=== PATIENT | male | born 1950 | race Caucasian/White ===

== ENCOUNTER → 2016-05-23 | Outpatient (CLI) | payer MEDICARE, OTHER | LOC: LAB 07:01 | DX: N40.0 Benign prostatic hyperplasia without lower urinary tract symptoms (principal); I10 Essential (primary) hypertension; E78.01 Familial hypercholesterolemia; K21.9 Gastro-esophageal reflux disease without esophagitis ==

== ENCOUNTER → 2016-05-30 | Day surgery (SDC) | payer MEDICARE, OTHER | LOC: MSO 13:36 | DX: Z12.11 Encounter for screening for malignant neoplasm of colon (principal); K22.2 Esophageal obstruction; I10 Essential (primary) hypertension; G47.33 Obstructive sleep apnea (adult) (pediatric); R13.10 Dysphagia, unspecified; K21.9 Gastro-esophageal reflux disease without esophagitis | CPT/HCPCS: 00810; A4649; J3010; J7120 ==

== ENCOUNTER 2016-06-28 15:25 | Outpatient (RCR) | payer MEDICARE, OTHER | END 2016-09-26 | disposition home or self-care (01) | LOC: CARDREHAB | DX: Z48.812 Encounter for surgical aftercare following surgery on the circulatory system (principal); Z95.5 Presence of coronary angioplasty implant and graft ==

== ENCOUNTER 2016-10-11 08:00 | Outpatient (RCR) | payer MEDICARE, OTHER | END 2017-01-09 | disposition home or self-care (01) | LOC: CARDREHAB | DX: Z48.812 Encounter for surgical aftercare following surgery on the circulatory system (principal); Z95.5 Presence of coronary angioplasty implant and graft ==

== ENCOUNTER 2017-05-04 01:53 | Emergency (ER) | payer MEDICARE, OTHER ==
[~2017-05-04] VITALS: Ht 170.2 cm; Wt 103.1 kg
[2017-05-04] MEDS ORDERED: CLOPIDOGREL75 M2 PO (02:09)
[2017-05-04] MEDS ORDERED: WELLBUTRIN (02:10)
[2017-05-04] MEDS ORDERED: LOPRESSOR 225 MG/TAB PO ×2 (02:10→02:13)
[2017-05-04] MEDS ORDERED: POTASSIUM CHLO10 ME8 PO (02:10)
[2017-05-04] MEDS ORDERED: ATORVASTATIN CA80 MG PO (02:10)
[2017-05-04] MEDS ORDERED: BUSPIRONE5 MG PO (02:11)
[2017-05-04] MEDS ORDERED: HCTZ 25MG25 MG PO (02:11)
[2017-05-04] MEDS ORDERED: ACID REDUCER 1150 MG PO (02:11)
[2017-05-04] MEDS ORDERED: VASOTEC 10M10 MG/TAB PO (02:12)
[2017-05-04] MEDS ORDERED: NITROSTAT0.4 M1 SL (02:15)
[2017-05-04] MEDS ORDERED: ASPIRIN 81M81 MG/TA2 PO (02:16)
[2017-05-04 02:41] LABS: EOS # 0.1 (0.04-0.40); EOS % 1.7 % (0.0-4.0); HEMATOCRIT 43.1 % (42.0-52.0); HEMOGLOBIN 15.2 g/dL (13.5-18.0); LYMPH# 1.2 (1.50-4.00); MEAN CELL VOLUME 82 fl (78-100); MEAN CORPUSCULAR HEMOGLOBIN 29 pg (27-31); MEAN CORPUSCULAR HGB CONC 35 g/dL (33-37); MEAN PLATELET VOLUME 10.3 fl (7.4-10.4); MONO # 0.5 (0.20-0.80); NEU # 4.1 (1.40-6.50); PLATELET COUNT 179 K/mm3 (130-400); RED BLOOD COUNT 5.25 M/mm3 (4.20-5.60); RED CELL DISTRIBUTION WIDTH 12.6 % (11.5-14.5); WHITE BLOOD COUNT 5.8 K/mm3 (4.8-10.8)
[2017-05-04 02:56] LABS: ALBUMIN 3.8 g/dL (3.5-5.0); BUN/CREATININE RATIO 14.4 (6.0-26.0); CALCIUM 9.6 mg/dL (8.4-10.2); POTASSIUM 3.4 mmol/L (3.6-5.0); TOTAL BILIRUBIN 0.7 mg/dL (0.2-1.3); TOTAL PROTEIN 6.9 g/dL (6.3-8.2)
[2017-05-04 03:03] LABS: CKMB ISOENZYME 1.9 ng/mL (0.6-3.5); URINE APPEARANCE HAZY; URINE BILIRUBIN NEGATIVE (NEGATIVE); URINE BLOOD 250 ery/uL (NEGATIVE); URINE COLOR YELLOW; URINE GLUCOSE NEGATIVE (NEGATIVE); URINE KETONE NEGATIVE (NEGATIVE); URINE NITRATE NEGATIVE (NEGATIVE); URINE PROTEIN(semi-quant) TRACE mg/dL (NEGATIVE); URINE UROBILINOGEN NORMAL (NORMAL)
[2017-05-04 03:04] LABS: TROPONIN-I < 0.03 ng/mL (0.00-0.06); URINE LEUKOCYTE ESTERASE TRACE (NEGATIVE); URINE MUCUS PRESENT (NOT PRESENT)
[2017-05-04] MEDS ORDERED: PERCOCET 325 MG1 TA2 PO (03:18)
[2017-05-04] MEDS ORDERED: FLOMAX0.4 MG PO (03:18)
[2017-05-04] MEDS ORDERED: CIPRO 500MG TA500 MG PO (03:18)
[2017-05-04 08:10] VITALS: BP 136/77
== END 2017-05-04 08:22 | disposition home or self-care (01) ==
LOC: ED 01:53
PROVIDERS: Nurse Practitioner Family
DX: N13.2 Hydronephrosis with renal and ureteral calculous obstruction (principal); I25.10 Atherosclerotic heart disease of native coronary artery without angina pectoris; I10 Essential (primary) hypertension; Z95.5 Presence of coronary angioplasty implant and graft; Z79.02 Long term (current) use of antithrombotics/antiplatelets; Z98.1 Arthrodesis status; Z79.82 Long term (current) use of aspirin; M54.2 Cervicalgia
CPT/HCPCS: J0744; J1885; J2270; J2405; J7030

== ENCOUNTER → 2017-08-13 | Outpatient (CLI) | payer MEDICARE ==
[~2017-08-13] MED LIST: ACID REDUCER 1150 MG PO; ASPIRIN 81M81 MG/TA2 PO; ATORVASTATIN CA80 MG PO; BUSPIRONE5 MG PO; CIPRO 500MG TA500 MG PO; CLOPIDOGREL75 M2 PO; FLOMAX0.4 MG PO; HCTZ 25MG25 MG PO; LOPRESSOR 225 MG/TAB PO; NITROSTAT0.4 M1 SL; PERCOCET 325 MG1 TA2 PO; POTASSIUM CHLO10 ME8 PO; VASOTEC 10M10 MG/TAB PO; WELLBUTRIN
[2017-08-13 12:13] LABS: HEMATOCRIT 44.9 % (42.0-52.0); HEMOGLOBIN 15.3 g/dL (13.5-18.0); MEAN PLATELET VOLUME 10.2 fl (7.4-10.4); RED BLOOD COUNT 5.37 M/mm3 (4.20-5.60); RED CELL DISTRIBUTION WIDTH 13.2 % (11.5-14.5); WHITE BLOOD COUNT 5.2 K/mm3 (4.8-10.8)
[2017-08-13 12:24] LABS: ALBUMIN 3.9 g/dL (3.5-5.0); BUN/CREATININE RATIO 19.3 (6.0-26.0); CALCIUM 9.2 mg/dL (8.4-10.2); POTASSIUM 3.8 mmol/L (3.6-5.0); TOTAL BILIRUBIN 0.7 mg/dL (0.2-1.3); TOTAL PROTEIN 7.4 g/dL (6.3-8.2)
[2017-08-14 00:08] LABS: HEPATITIS C VIRUS ANTIBODY Negative (())
== END ==
LOC: LAB 11:54
PROVIDERS: Family Medicine
DX: E66.9 Obesity, unspecified (principal); I10 Essential (primary) hypertension

== ENCOUNTER → 2017-11-19 | Outpatient (CLI) | payer MEDICARE ==
[2017-11-19 13:26] LABS: URINE APPEARANCE CLEAR; URINE COLOR YELLOW
[2017-11-19 13:27] LABS: URINE BILIRUBIN NEGATIVE (NEGATIVE); URINE BLOOD NEGATIVE (NEGATIVE); URINE GLUCOSE NEGATIVE (NEGATIVE); URINE KETONE NEGATIVE (NEGATIVE); URINE LEUKOCYTE ESTERASE NEGATIVE (NEGATIVE); URINE NITRATE NEGATIVE (NEGATIVE); URINE PROTEIN(semi-quant) NEGATIVE (NEGATIVE); URINE UROBILINOGEN NORMAL (NORMAL); URINE WBC 0-1 /hpf (0-3)
== END ==
LOC: LAB 11:41
PROVIDERS: Family Medicine
DX: M16.0 Bilateral primary osteoarthritis of hip (principal); M89.8X5 Other specified disorders of bone, thigh

== ENCOUNTER 2018-01-03 11:30 | Outpatient (RCR) | payer MEDICARE | END 2018-01-03 12:00 | disposition home or self-care (01) | LOC: PT 11:30 | DX: M76.31 Iliotibial band syndrome, right leg (principal) | CPT/HCPCS: G8978-GP; G8979-GP ==

== ENCOUNTER → 2018-06-03 | Outpatient (CLI) | payer MEDICARE | LOC: RAD 07:58 | DX: N20.1 Calculus of ureter (principal); Z96.7 Presence of other bone and tendon implants ==

== ENCOUNTER → 2018-08-20 | Outpatient (CLI) | payer MEDICARE ==
[2018-08-20 10:39] LABS: EOS # 0.1 (0.04-0.40); EOS % 2.6 % (0.0-4.0); HEMATOCRIT 44.2 % (42.0-52.0); HEMOGLOBIN 14.5 g/dL (13.5-18.0); LYMPH# 1.5 (1.50-4.00); MEAN CELL VOLUME 84 fl (78-100); MEAN CORPUSCULAR HEMOGLOBIN 28 pg (27-31); MEAN CORPUSCULAR HGB CONC 33 g/dL (33-37); MEAN PLATELET VOLUME 10.3 fl (7.4-10.4); MONO # 0.5 (0.20-0.80); NEU # 2.8 (1.40-6.50); PLATELET COUNT 187 K/mm3 (130-400); RED BLOOD COUNT 5.24 M/mm3 (4.20-5.60); RED CELL DISTRIBUTION WIDTH 13.3 % (11.5-14.5)
[2018-08-20 10:56] LABS: ALBUMIN 3.8 g/dL (3.5-5.0); POTASSIUM 3.9 mmol/L (3.6-5.0); TOTAL BILIRUBIN 0.6 mg/dL (0.2-1.3); TOTAL PROTEIN 6.8 g/dL (6.3-8.2)
== END ==
LOC: LAB 10:18
PROVIDERS: Family Medicine
DX: Z00.00 Encounter for general adult medical examination without abnormal findings (principal); E56.9 Vitamin deficiency, unspecified; E78.00 Pure hypercholesterolemia, unspecified

== ENCOUNTER → 2019-05-27 | Outpatient (CLI) | payer MEDICARE | LOC: RAD 11:24 | DX: N20.1 Calculus of ureter (principal); R35.1 Nocturia; Z98.890 Other specified postprocedural states ==

== ENCOUNTER → 2019-07-28 | Outpatient (CLI) | payer MEDICARE ==
[2019-07-28 07:50] LABS: ALBUMIN 3.7 g/dL (3.4-4.8); POTASSIUM 3.5 mmol/L (3.5-5.1)
[2019-07-28 07:51] LABS: CALCIUM 9.1 mg/dL (8.3-10.5)
[2019-07-28 07:53] LABS: TOTAL PROTEIN 6.6 g/dL (6.2-8.1)
[2019-07-28 07:54] LABS: TOTAL BILIRUBIN 0.9 mg/dL (0.2-1.2)
[2019-07-28 08:03] LABS: EOS # 0.2 (0.04-0.40); EOS % 3.3 % (0.0-4.0); HEMATOCRIT 44.5 % (42.0-52.0); HEMOGLOBIN 15.1 g/dL (13.5-18.0); LYMPH# 1.8 (1.50-4.00); MEAN CELL VOLUME 84 fl (78-100); MEAN CORPUSCULAR HEMOGLOBIN 29 pg (27-31); MEAN CORPUSCULAR HGB CONC 34 g/dL (33-37); MEAN PLATELET VOLUME 10.9 fl (7.4-10.4); MONO # 0.5 (0.20-0.80); NEU # 2.8 (1.40-6.50); PLATELET COUNT 173 K/mm3 (130-400); RED BLOOD COUNT 5.28 M/mm3 (4.20-5.60); RED CELL DISTRIBUTION WIDTH 13.2 % (11.5-14.5); WHITE BLOOD COUNT 5.2 K/mm3 (4.8-10.8)
== END ==
LOC: LAB 07:29
PROVIDERS: Family Medicine
DX: Z00.00 Encounter for general adult medical examination without abnormal findings (principal); Z12.5 Encounter for screening for malignant neoplasm of prostate; E56.9 Vitamin deficiency, unspecified; E78.00 Pure hypercholesterolemia, unspecified

== ENCOUNTER → 2020-06-10 | Outpatient (CLI) | payer MEDICARE | LOC: LAB 13:29 | DX: R35.1 Nocturia (principal) ==

== ENCOUNTER → 2020-07-09 | Outpatient (CLI) | payer MEDICARE ==
[2020-07-09 15:02] LABS: BASO # 0.1 (0.02-0.10); EOS # 0.2 (0.04-0.40); EOS % 3.6 % (0.0-4.0); HEMATOCRIT 44.1 % (42.0-52.0); LYMPH# 2.2 (1.50-4.00); MEAN CELL VOLUME 83 fl (78-100); MEAN CORPUSCULAR HEMOGLOBIN 28 pg (27-31); MEAN CORPUSCULAR HGB CONC 34 g/dL (33-37); MEAN PLATELET VOLUME 10.2 fl (7.4-10.4); MONO # 0.7 (0.20-0.80); NEU # 3.4 (1.40-6.50); PLATELET COUNT 179 K/mm3 (130-400); RED BLOOD COUNT 5.31 M/mm3 (4.20-5.60); WHITE BLOOD COUNT 6.5 K/mm3 (4.8-10.8)
[2020-07-09 15:19] LABS: ALBUMIN 3.9 g/dL (3.4-4.8); POTASSIUM 3.4 mmol/L (3.5-5.1)
[2020-07-09 15:20] LABS: CALCIUM 9.1 mg/dL (8.3-10.5)
[2020-07-09 15:21] LABS: TOTAL PROTEIN 6.9 g/dL (6.2-8.1)
[2020-07-09 15:23] LABS: TOTAL BILIRUBIN 0.6 mg/dL (0.2-1.2)
== END ==
LOC: LAB 14:47
PROVIDERS: Family Medicine
DX: Z00.00 Encounter for general adult medical examination without abnormal findings (principal); E78.5 Hyperlipidemia, unspecified

== ENCOUNTER → 2020-09-17 | Outpatient (CLI) | payer MEDICARE ==
[2020-09-17 10:01] LABS: URINE APPEARANCE CLEAR; URINE BILIRUBIN NEGATIVE (NEGATIVE); URINE BLOOD NEGATIVE (NEGATIVE); URINE COLOR YELLOW; URINE GLUCOSE NEGATIVE (NEGATIVE); URINE KETONE NEGATIVE (NEGATIVE); URINE LEUKOCYTE ESTERASE NEGATIVE (NEGATIVE); URINE NITRATE NEGATIVE (NEGATIVE); URINE PROTEIN(semi-quant) NEGATIVE (NEGATIVE); URINE UROBILINOGEN NORMAL (NORMAL)
[2020-09-17 10:02] LABS: URINE MUCUS PRESENT (NOT PRESENT)
== END ==
LOC: RAD 09:12
PROVIDERS: Family Medicine
DX: M43.16 Spondylolisthesis, lumbar region (principal); Z98.1 Arthrodesis status; Z98.890 Other specified postprocedural states

== ENCOUNTER → 2021-07-19 | Outpatient (CLI) | payer MEDICARE ==
[2021-07-19 07:24] LABS: BASO # 0.05 K/mm3 (0.02-0.10); EOS % 3.8 % (0.0-4.0); HEMATOCRIT 43.7 % (42.0-52.0); LYMPH# 1.45 K/mm3 (1.50-4.00); MEAN CELL VOLUME 86 fl (78-100); MEAN CORPUSCULAR HEMOGLOBIN 30 pg (27-31); MEAN CORPUSCULAR HGB CONC 34 g/dL (33-37); MEAN PLATELET VOLUME 10.3 fl (7.4-10.4); MONO # 0.53 K/mm3 (0.20-0.80); NEU # 3.02 K/mm3 (1.40-6.50); PLATELET COUNT 162 K/mm3 (130-400); RED BLOOD COUNT 5.08 M/mm3 (4.20-5.60); RED CELL DISTRIBUTION WIDTH 12.4 % (11.5-14.5); WHITE BLOOD COUNT 5.3 K/mm3 (4.8-10.8)
[2021-07-19 08:02] LABS: ALBUMIN 3.8 g/dL (3.4-4.8); POTASSIUM 4.1 mmol/L (3.5-5.1)
[2021-07-19 08:03] LABS: CALCIUM 9.6 mg/dL (8.3-10.5)
[2021-07-19 08:04] LABS: TOTAL PROTEIN 6.8 g/dL (6.2-8.1)
[2021-07-19 08:06] LABS: TOTAL BILIRUBIN 0.8 mg/dL (0.2-1.2)
== END ==
LOC: LAB 07:04
PROVIDERS: Family Medicine
DX: Z00.00 Encounter for general adult medical examination without abnormal findings (principal); E78.5 Hyperlipidemia, unspecified; R73.9 Hyperglycemia, unspecified

== ENCOUNTER → 2021-11-23 | Outpatient (CLI) | payer MEDICARE | LOC: RAD 08:35 | DX: M51.36 Other intervertebral disc degeneration, lumbar region (principal); M43.16 Spondylolisthesis, lumbar region; Z98.1 Arthrodesis status ==

== ENCOUNTER 2022-01-02 08:59 | Outpatient (RCR) | payer MEDICARE | END 2022-01-11 | disposition home or self-care (01) | LOC: PT | DX: M51.36 Other intervertebral disc degeneration, lumbar region (principal) ==

== ENCOUNTER 2022-01-12 07:54 | Outpatient (RCR) | payer MEDICARE | END 2022-02-10 | disposition home or self-care (01) | LOC: PT | DX: M51.36 Other intervertebral disc degeneration, lumbar region (principal) ==

== ENCOUNTER → 2022-07-18 | Outpatient (CLI) | payer MEDICARE ==
[2022-07-18 15:50] LABS: BASO # 0.03 K/mm3 (0.02-0.10); EOS # 0.17 K/mm3 (0.04-0.40); EOS % 2.9 % (0.0-4.0); HEMATOCRIT 45.1 % (42.0-52.0); HEMOGLOBIN 15.2 g/dL (13.5-18.0); LYMPH# 1.86 K/mm3 (1.50-4.00); MEAN CELL VOLUME 86 fl (78-100); MEAN CORPUSCULAR HEMOGLOBIN 29 pg (27-31); MEAN CORPUSCULAR HGB CONC 34 g/dL (33-37); MEAN PLATELET VOLUME 10.1 fl (7.4-10.4); MONO # 0.58 K/mm3 (0.20-0.80); NEU # 3.12 K/mm3 (1.40-6.50); PLATELET COUNT 177 K/mm3 (130-400); RED BLOOD COUNT 5.27 M/mm3 (4.20-5.60); RED CELL DISTRIBUTION WIDTH 12.7 % (11.5-14.5); WHITE BLOOD COUNT 5.8 K/mm3 (4.8-10.8)
[2022-07-18 15:51] LABS: ALBUMIN 3.9 g/dL (3.4-4.8)
[2022-07-18 15:52] LABS: POTASSIUM 3.9 mmol/L (3.5-5.1)
[2022-07-18 15:53] LABS: CALCIUM 9.6 mg/dL (8.3-10.5)
[2022-07-18 15:54] LABS: TOTAL PROTEIN 6.9 g/dL (6.2-8.1)
[2022-07-18 15:56] LABS: TOTAL BILIRUBIN 0.5 mg/dL (0.2-1.2)
== END ==
LOC: LAB 15:28
PROVIDERS: Family Medicine
DX: Z00.00 Encounter for general adult medical examination without abnormal findings (principal); I25.10 Atherosclerotic heart disease of native coronary artery without angina pectoris; J30.2 Other seasonal allergic rhinitis; I10 Essential (primary) hypertension; G47.33 Obstructive sleep apnea (adult) (pediatric); K21.9 Gastro-esophageal reflux disease without esophagitis; G25.0 Essential tremor; E78.5 Hyperlipidemia, unspecified; F41.1 Generalized anxiety disorder; E66.9 Obesity, unspecified; M19.90 Unspecified osteoarthritis, unspecified site

== ENCOUNTER → 2023-03-14 | Outpatient (CLI) | payer MEDICARE | LOC: LAB 07:23 | DX: I25.10 Atherosclerotic heart disease of native coronary artery without angina pectoris (principal) ==

== ENCOUNTER 2023-03-29 11:04 | Outpatient (RCR) | payer MEDICARE | END 2023-04-12 | disposition home or self-care (01) | LOC: SPEECH | DX: G31.84 Mild cognitive impairment of uncertain or unknown etiology (principal) ==

== ENCOUNTER 2023-04-13 08:00 | Outpatient (RCR) | payer MEDICARE | END 2023-05-13 | disposition home or self-care (01) | LOC: PT | DX: R26.89 Other abnormalities of gait and mobility (principal) ==

== ENCOUNTER 2023-04-13 08:00 | Outpatient (RCR) | payer MEDICARE | END 2023-05-13 | disposition home or self-care (01) | LOC: SPEECH | DX: G31.84 Mild cognitive impairment of uncertain or unknown etiology (principal) ==

== ENCOUNTER 2023-05-15 08:00 | Outpatient (RCR) | payer MEDICARE | END 2023-06-13 | disposition home or self-care (01) | LOC: SPEECH | DX: G31.84 Mild cognitive impairment of uncertain or unknown etiology (principal) ==

== ENCOUNTER 2023-05-15 08:00 | Outpatient (RCR) | payer MEDICARE | END 2023-06-13 | disposition home or self-care (01) | LOC: PT | DX: R26.89 Other abnormalities of gait and mobility (principal) ==

== ENCOUNTER → 2023-05-17 | Outpatient (CLI) | payer MEDICARE | LOC: LAB 11:11 | DX: D64.9 Anemia, unspecified (principal); G31.84 Mild cognitive impairment of uncertain or unknown etiology; G25.0 Essential tremor; R26.89 Other abnormalities of gait and mobility ==

== ENCOUNTER 2023-06-14 08:00 | Outpatient (RCR) | payer MEDICARE | END 2023-06-25 17:00 | disposition home or self-care (01) | LOC: SPEECH 08:00 | DX: G31.84 Mild cognitive impairment of uncertain or unknown etiology (principal) ==

== ENCOUNTER → 2023-06-15 | Outpatient (CLI) | payer MEDICARE | LOC: LAB 06:52 | DX: E78.5 Hyperlipidemia, unspecified (principal) ==

== ENCOUNTER → 2024-04-16 | Outpatient (CLI) | payer MEDICARE | LOC: RAD 12:41 | DX: M16.0 Bilateral primary osteoarthritis of hip (principal) ==

== ENCOUNTER → 2024-04-21 | Outpatient (CLI) | payer MEDICARE ==
[2024-04-21 14:46] LABS: BASO # 0.02 K/mm3 (0.02-0.10); EOS # 0.14 K/mm3 (0.04-0.40); EOS % 2.4 % (0.0-4.0); HEMOGLOBIN 15.1 g/dL (13.5-18.0); LYMPH# 1.97 K/mm3 (1.50-4.00); MEAN CELL VOLUME 86 fl (78-100); MEAN CORPUSCULAR HEMOGLOBIN 29 pg (27-31); MEAN CORPUSCULAR HGB CONC 34 g/dL (33-37); MEAN PLATELET VOLUME 9.9 fl (7.4-10.4); MONO # 0.61 K/mm3 (0.20-0.80); NEU # 3.06 K/mm3 (1.40-6.50); PLATELET COUNT 160 K/mm3 (130-400); RED BLOOD COUNT 5.21 M/mm3 (4.20-5.60); RED CELL DISTRIBUTION WIDTH 12.5 % (11.5-14.5); WHITE BLOOD COUNT 5.8 K/mm3 (4.8-10.8)
[2024-04-21 14:51] LABS: ALBUMIN 3.9 g/dL (3.4-4.8)
[2024-04-21 14:52] LABS: CALCIUM 9.9 mg/dL (8.3-10.5)
[2024-04-21 14:54] LABS: TOTAL PROTEIN 6.7 g/dL (6.2-8.1)
[2024-04-21 14:55] LABS: TOTAL BILIRUBIN 0.8 mg/dL (0.2-1.2)
== END ==
LOC: LAB 14:36
PROVIDERS: Family Medicine
DX: Z12.5 Encounter for screening for malignant neoplasm of prostate (principal); I10 Essential (primary) hypertension; E78.5 Hyperlipidemia, unspecified

== ENCOUNTER 2024-05-13 02:17 | Emergency (ER) | payer MEDICARE ==
[~2024-05-13] VITALS: Ht 170.2 cm; Wt 97.7 kg
[2024-05-13] MEDS ORDERED: OMEPRAZOLE40 MG PO (02:38)
[2024-05-13] MEDS ORDERED: WELLBUTRIN SR150 M2 PO (02:39)
[2024-05-13] MEDS ORDERED: CELECOXIB400 MG PO (02:39)
[2024-05-13] MEDS ORDERED: CIALIS5 MG PO (02:40)
[2024-05-13] MEDS ORDERED: ADULT LOW DOSE81 MG PO (02:40)
[2024-05-13] MEDS ORDERED: EZETIMIBE10 M1 PO (02:42)
[2024-05-13] MEDS ORDERED: DONEPEZIL HCL10 MG PO (02:43)
[2024-05-13] MEDS ORDERED: MYSOLINE50 M1 (02:43)
[2024-05-13] MEDS ORDERED: DHIVY 25-100 M1 EACH PO (02:44)
[2024-05-13] MEDS ORDERED: CYCLOBENZAPRINE10 M1 PO (02:45)
[2024-05-13] MEDS ORDERED: Mag/Al Hydrox/Simeth Susp 30 ML CUP PO ONE (03:00)
[2024-05-13 03:18] VITALS: BP 126/68
== END 2024-05-13 03:19 | disposition home or self-care (01) ==
LOC: ED 02:17
DX: K21.9 Gastro-esophageal reflux disease without esophagitis (principal); I44.7 Left bundle-branch block, unspecified; Z95.5 Presence of coronary angioplasty implant and graft

== ENCOUNTER → 2024-05-31 | Outpatient (CLI) | payer MEDICARE ==
[~2024-05-31] MED LIST changes: +ADULT LOW DOSE81 MG PO; +CELECOXIB400 MG PO; +CIALIS5 MG PO; +CYCLOBENZAPRINE10 M1 PO; +DHIVY 25-100 M1 EACH PO; +DONEPEZIL HCL10 MG PO; +EZETIMIBE10 M1 PO; +MYSOLINE50 M1; +OMEPRAZOLE40 MG PO; +WELLBUTRIN SR150 M2 PO
[2024-05-31 07:56] LABS: BASO # 0.01 K/mm3 (0.02-0.10); EOS # 0.09 K/mm3 (0.04-0.40); EOS % 1.4 % (0.0-4.0); HEMATOCRIT 42.9 % (42.0-52.0); HEMOGLOBIN 14.1 g/dL (13.5-18.0); LYMPH# 1.69 K/mm3 (1.50-4.00); MEAN CELL VOLUME 87 fl (78-100); MEAN CORPUSCULAR HEMOGLOBIN 29 pg (27-31); MEAN CORPUSCULAR HGB CONC 33 g/dL (33-37); MEAN PLATELET VOLUME 9.6 fl (7.4-10.4); MONO # 0.54 K/mm3 (0.20-0.80); NEU # 3.86 K/mm3 (1.40-6.50); PLATELET COUNT 158 K/mm3 (130-400); RED BLOOD COUNT 4.91 M/mm3 (4.20-5.60); RED CELL DISTRIBUTION WIDTH 13.1 % (11.5-14.5); WHITE BLOOD COUNT 6.2 K/mm3 (4.8-10.8)
[2024-05-31 08:13] LABS: ALBUMIN 3.7 g/dL (3.4-4.8)
[2024-05-31 08:15] LABS: TOTAL PROTEIN 6.2 g/dL (6.2-8.1)
[2024-05-31 08:17] LABS: TOTAL BILIRUBIN 0.8 mg/dL (0.2-1.2)
== END ==
LOC: LAB 07:44
PROVIDERS: Family Medicine
DX: I10 Essential (primary) hypertension (principal)

== ENCOUNTER → 2024-06-10 | Outpatient (CLI) | payer MEDICARE | LOC: RAD 08:06 | DX: R13.10 Dysphagia, unspecified (principal) ==

== ENCOUNTER 2024-07-14 08:50 | Outpatient (RCR) | payer MEDICARE | END 2024-07-31 14:45 | disposition home or self-care (01) | LOC: SPEECH 08:50 | DX: G20.A2 Parkinson's disease without dyskinesia, with fluctuations (principal) ==